=== PATIENT | female | born 1985 | race Caucasian/White ===

== ENCOUNTER 2020-08-02 14:25 | Outpatient (RCR) | payer OTHER, SELFPAY | END 2020-08-18 07:45 | disposition home or self-care (01) | LOC: ANHOBOP 14:25 | PROVIDERS: PCP Family Medicine; Visit Provider Obstetrics & Gynecology | DX: Z36.89 Encounter for other specified antenatal screening (principal); O36.0130 Maternal care for anti-D [Rh] antibodies, third trimester, not applicable or unspecified; O20.0 Threatened abortion; Z3A.00 Weeks of gestation of pregnancy not specified | CPT/HCPCS: 36415; 84702; 86850; 86900; 86901 ==

== ENCOUNTER 2020-08-02 20:55 | Observation (INO) | payer OTHER, SELFPAY ==
--- NOTE | ~2020-08-02 | US_ITS ---
EXAMINATION: US OB <=14 wk fetus w TV DATE: 08/02/2020 22:21 INDICATION: Vaginal bleeding. TECHNIQUE: Real-time transabdominal and transvaginal obstetric ultrasound. FINDINGS: No prior studies for comparison. The uterus measures 8.7 x 4.5 x 5.8 cm. Endometrium measures 13.6 mm. There is a single living ectopi c in the right adnexa with heart rate of 171 BPM. [place]-rump length corresponds to 8 week 1 day gestation. Small amount of free fluid in the pelvis. The ovaries within normal limits. IMPRESSION: 1. Living ectopic in the right adnexa with an EGA of 8 weeks, 1 days. heart rate 171 BPM. [facility] radiologist verbally discussed this case with clinician as per documentation in their report, which was faxed and scanned into PACS with this exam. Reviewed, dictated and finalized at location [facility]. PULLER IMPRESSION: 1. Living ectopic in the right adnexa with an EGA of 8 weeks, 1 days. heart rate 171 BPM. [facility] radiologist verbally discussed this case with clinician as per document ation in their report, which was faxed and scanned into PACS with this exam.
[2020-08-02 20:57] VITALS: BP 136/75; PULSE 101; RESP 20; TEMP 36.2; O2SAT 100
--- NOTE | 2020-08-02 21:29 | ED.FEMALEGU ---
HPI - Female Genitourinary General Chief complaint: Vaginal Bleeding Stated complaint: , spotting Time Seen by Provider: 08/02/20 21:05 History of Present Illness HPI Narrative: Patient is a 34-year-old female who presents ER with vaginal bleeding. Reports she had a drop of blood in her underwear when using the restroom this evening. LMP was 07/01. She had a positive test 2 days ago. She then had a positive beta hCG the same day and then had a repeat today. Is gone from 31,000-33,000. Patient's blood type is O+. She is a G1, P0. No lower abdominal pain. No urinary symptoms. Related Data Home Medications Medication Instructions Recorded Confirmed bupropion HCl (smoking deter) mg PO 08/02/20 cyanocobalamin (vitamin B-12) 08/02/20 metformin mg 08/02/20 Allergies Allergy/AdvReac Type Severity Reaction Status Date / Time No Known Allergies Allergy Verified 08/02/20 21:07 Review of Systems Review of Systems: All systems reviewed & are unremarkable except as noted in HPI and below Constitutional: Constitutional: Denies chills and Denies fatigue Gastrointestinal: Gastrointestinal: Denies abdominal pain, Denies nausea and Denies vomiting Genitourinary: Genitourinary: Reports abnormal vaginal bleeding, Denies dysuria, Denies urinary incontinence and Denies vaginal discharge PMFSH Past Medical History Medical History (Updated 08/02/20 @ 22:42 by Armando Vela MD) Healthy female adult Surgical History Surgical History (Updated 08/02/20 @ 21:35 by Armando Vela MD) No history of previous surgery Social History Social History (Updated 08/02/20 @ 21:36 by Armando Vela MD) Smoking status: Current every day smoker Exam Narrative: Exam Narrative: GENERAL: Well-appearing, well-nourished, and in no acute distress. HEAD: Normocephalic, atraumatic. CHEST: Clear to auscultation. No respiratory distress. HEART: Regular rate and rhythm. Normal peripheral pulses. ABDOMEN: Soft, nontender, nondistended. : Normal external genitalia. Cervix closed with dark blood present within the vaginal vault and at the cervical os. No discharge or tenderness. EXTREMITIES: Normal range of motion. No edema. NEURO: Alert and oriented x3. PSYCH: Normal mood and affect. Course Course Emergency Course: Patient with ectopic on the right ovary that is [address] Guillaume contacted. Admit to his service and he will perform the surgery in the morning. Patient is not having pain. She is aware of the diagnosis and treatment plan. She will be kept n.p.o. Dr. Guillaume contacted with formal read of ultrasound. Vital Signs Vital signs: Vital Signs Temperature 97.1 F L 08/02/20 20:57 Pulse Rate 101 H 08/02/20 20:57 Respiratory Rate 20 08/02/20 20:57 Blood Pressure 136/75 08/02/20 20:57 Pulse Oximetry 100 08/02/20 20:57 Temperature 98.8 F 08/02/20 23:08 Pulse Rate 99 08/02/20 23:08 Respiratory Rate 17 08/02/20 23:08 Blood Pressure 124/76 08/02/20 23:08 Pulse Oximetry 98 08/02/20 23:08 MDM - Female Genitourinary Lab Data Result diagrams: 08/02/20 23:03 08/02/20 23:03 Labs: Lab Results 08/02/20 08/02/20 08/02/20 Range/Units 23:03 23:03 23:03 WBC Pending RBC Pending Hgb Pending Hct Pending MCV Pending MCH Pending MCHC Pending RDW Pending Plt Count Pending MPV Pending Immature Gran % (Auto) Pending Neut % (Auto) Pending Lymph % (Auto) Pending [place] % (Auto) Pending Eos % (Auto) Pending Baso % (Auto) Pending Lymph # (Auto) Pending [place] # (Auto) Pending Eos # (Auto) Pending Baso # (Auto) Pending Abs Immat Gran (auto) Pending Absolute Neuts (auto) Pending Absolute Nucleated RBC Pending Nucleated RBC % Pending PT Pending INR Pending APTT Pending Sodium [place]
[2020-08-02 23:08] VITALS: BP 124/76; PULSE 99; RESP 17; TEMP 37.1; O2SAT 98
[2020-08-02 23:13] LABS: Basophils Percent Auto 0.3 % (0.2-1.2); Eosinophils Absolute Auto 0.1 K/mm3 (0-0.3); Eosinophils Percent Auto 0.7 % (0-4.4); Hematocrit 38.9 % (37.0-47.0); Hemoglobin 13.4 g/dL (12.0-15.0); Immature Granulocyte Absolute 0.08 K/mm3 (0.00-0.031); Immature Granulocyte Percent A 0.5 % (0-0.5); Lymphocytes Absolute Auto 3.18 K/mm3 (0.9-3.2); Lymphocytes Percent Auto 21.1 % (18.3-44.2); Mean Corpuscular HGB Conc 34.4 g/dl (32-36); Mean Corpuscular Hemoglobin 33.7 pg (26-34); Mean Corpuscular Volume 97.7 fl (80-100); Mean Platelet Volume 9.2 fl (7.4-10.4); Monocytes Absolute Auto 1.3 K/mm3 (0.1-0.6); Monocytes Percent Auto 8.3 % (2.6-8.5); Neutrophils Absolute Auto 10.4 K/mm3 (1.3-6.7); Neutrophils Percent Auto 69.1 % (45.5-73.1); Platelet Count Result 326 k/mm3 (150-375); Red Blood Count 3.98 M/mm3 (4.2-5.4); Red Cell Distribution Width 13.4 % (11.5-14.5)
[2020-08-02 23:29] LABS: Partial Thromboplastin Time 26.8 SECONDS (22.3-36.8)
[2020-08-02 23:31] LABS: Anion Gap 8 mmol/L (8-16); Blood Urea Nitrogen 10 mg/dL (7-17); Calcium 9.4 mg/dL (8.4-10.2); Carbon Dioxide 27 mmol/L (22-30); Chloride 104 mmol/L (98-107); Estimated CRCL calculation 154 ml/min; Estimated Glomerular Filt Rate > 60; Glucose 113 mg/dL (65-105); Potassium 3.9 mmol/L (3.4-5.0); Sodium 139 mmol/L (137-145)
[2020-08-02 23:45] LABS: INR 0.9; Prothrombin Time 12.4 Seconds (11.1-14.7)
[2020-08-03] VITALS (13 sets, daily range): BP systolic 101–131; BP diastolic 53–91; PULSE 80–97; RESP 12–21; TEMP 36.3–37.1; O2SAT 97–100; BMI 35.2
--- NOTE | 2020-08-03 00:43 | ADMGEN ---
This patient, Naomi Duarte, was admitted to Medical Room 241-01 at 0040 . Patient/family oriented to hospital policies and general routines including ID bracelet, bed and alarms, visiting hours, pain management, procedures, bathroom and other care routines, personal items, smoking policy, room service/diet, and visiting hours. Information on how to activate the Rapid Response Team has been discussed. Patient/Family are encouraged to report perceived risks to care and to ask questions if they do not understand what they are told or what they should do.
--- NOTE | 2020-08-03 07:38 | PM.IMHP ---
H&P: HPI History of Present Illness Date/Time: 08/03/20 07:38 Chief complaint: ectopic Narrative: Naomi Duarte is a 34 year old female primigravida at 39 weeks gestation who presents for delivery. She has a breech . This was confirmed by ultrasound moments ago. She denies any contractions, loss of fluid, vaginal bleeding. She reports good movement. She denies any nausea, vomiting, fever, chills. She denies any headaches, blurry vision, epigastric pain. She denies any chest pain or shortness of breath. Review of Systems Constitutional: Constitutional: Reports no additional constitutional complaints, Denies fatigue, Denies headache(s), Denies lethargy and Denies weakness Eyes: Eyes: Reports no additional eye complaints, Denies blurry vision and Denies photophobia ENT: Reports as per HPI, Denies headache(s) and Denies neck pain Cardiovascular: Cardiovascular: Denies chest pain, Denies diaphoresis, Denies leg edema, Denies palpitations and Denies dyspnea Respiratory: Respiratory: Denies hemoptysis, Denies dyspnea and Denies wheezing Gastrointestinal: Gastrointestinal: Denies abdominal pain, Denies melena, Denies bloating, Denies hematochezia, Denies nausea and Denies vomiting Genitourinary: Genitourinary: Reports no additional female genitourinary complaints Musculoskeletal: Musculoskeletal: Denies joint swelling, Denies neck pain, Denies numbness and Denies stiffness Neurologic: Denies Abnormal speech present, Denies confusion, Denies headache(s), Denies numbness and Denies weakness Psychiatric: Psychiatric: Denies anxiety, Denies confusion, Denies depression, Denies homicidal ideation and Denies suicidal ideation Endocrine: Endocrine: Denies fatigue and Denies palpitations Allergic/Immunologic: Allergic/Immunologic: Denies wheezing PMFSH Past Medical History Medical History (Updated 08/03/20 @ 07:42 by Shaun Guillaume MD) Healthy female adult Surgical History Surgical History (Updated 08/02/20 @ 21:35 by Armando Vela MD) No history of previous surgery Family History Family History (Updated 08/03/20 @ 01:17 by Cynthia Leon RN) Father Diabetes mellitus FH: heart attack Mother Acute rheumatoid arthritis Sibling Cerebrovascular accident Social History Social History (Updated 08/02/20 @ 21:36 by Armando Vela MD) Smoking packs per day: 1 Smoking cigarettes per day: 20.0 Smoking status: Former smoker Tobacco type: cigarettes Second hand tobacco smoke exposure: Yes Alcohol intake: former Substance use: never Gender identity (if verbalized by the patient): Female Spiritual care concerns: No Meds Home Medications and Allergies Home Medications Medication Instructions Recorded Confirmed Type bupropion HCl (smoking deter) 150 mg PO BID 08/02/20 08/03/20 History cyanocobalamin (vitamin B-12) 1,000 mcg SUBCUT MONTHLY 08/02/20 08/03/20 History metformin 500 mg PO BID 08/02/20 08/03/20 History Daily 1 tablet PO DAILY 08/03/20 08/03/20 History albuterol sulfate 2 puff INHALATION Q2-4H PRN 08/03/20 08/03/20 History ascorbate calcium (vitamin C) 1,000 mg PO DAILY 08/03/20 08/03/20 History cetirizine [Zyrtec] 10 mg PO DAILY 08/03/20 08/03/20 History cholecalciferol (vitamin D3) 5,000 unit PO DAILY 08/03/20 08/03/20 History [Vitamin D3] ibuprofen 800 mg PO Q4-6H PRN 08/03/20 08/03/20 History Allergies Allergy/AdvReac Type Severity Reaction Status Date / Time No Known Allergies Allergy Verified 08/03/20 00:45 Vital Signs Vital Signs - 24 hr 08/02/20 20:57 08/02/20 23:08 08/03/20 00:22 Temperature 97.1 F L 98.8 F 98.8 F Pulse Rate 101 H 99 92 Respiratory Rate 20 17 18 Blood Pressure 136/75 124/76 117/75 Pulse Oximetry 100 98 99 08/03/20 02:00 08/03/20 06:00 Temperature 98.1 F 98.6 F Pulse Rate 93 85 Respiratory Rate 21 H 21 H Blood Pressure 112/91 H 101/55 L Pulse Oximetry 100 100 Exam
--- NOTE | 2020-08-03 08:00 | PC.NURSE ---
To OR per bed, IV Saline locked. Report given to .
--- NOTE | 2020-08-03 08:32 | WPDANESEPPF ---
Anes - Initial Pre Proc Eval Procedure: Operation Date: 08/03/20 09:15 Proposed Procedures p Diagnostic Laparoscopy For Ectopic - Shaun Guillaume MD Date/Time: 08/03/20 08:32 Surgeon: Shaun Guillaume MD Pre Op Diagnosis: ectopic Patient Data Age: 34 Gender: F Height: 5 ft 5 in Weight: 96.2 kg Last Vital Signs Temp 37.0 C 08/03/20 06:00 Pulse 85 08/03/20 06:00 Resp 21 H 08/03/20 06:00 BP 101/55 L 08/03/20 06:00 Pulse Ox 100 08/03/20 06:00 Allergies Allergy/AdvReac Type Severity Reaction Status Date / Time No Known Allergies Allergy Verified 08/03/20 00:45 Home Medications Medication Instructions Recorded Confirmed Type bupropion HCl (smoking deter) 150 mg PO BID 08/02/20 08/03/20 History cyanocobalamin (vitamin B-12) 1,000 mcg SUBCUT MONTHLY 08/02/20 08/03/20 History metformin 500 mg PO BID 08/02/20 08/03/20 History Daily 1 tablet PO DAILY 08/03/20 08/03/20 History albuterol sulfate 2 puff INHALATION Q2-4H PRN 08/03/20 08/03/20 History ascorbate calcium (vitamin C) 1,000 mg PO DAILY 08/03/20 08/03/20 History cetirizine [Zyrtec] 10 mg PO DAILY 08/03/20 08/03/20 History cholecalciferol (vitamin D3) 5,000 unit PO DAILY 08/03/20 08/03/20 History [Vitamin D3] ibuprofen 800 mg PO Q4-6H PRN 08/03/20 08/03/20 History Laboratory Tests 08/02/20 08/02/20 08/02/20 23:03 23:03 23:03 WBC 15.0 K/mm3 H K/mm3 (4.5-10.0) RBC 3.98 M/mm3 L M/mm3 (4.2-5.4) Hgb 13.4 g/dL g/dL (12.0-15.0) Hct 38.9 % % (37.0-47.0) MCV 97.7 fl fl (80-100) MCH 33.7 pg pg (26-34) MCHC 34.4 g/dl g/dl (32-36) RDW 13.4 % % (11.5-14.5) Plt Count 326 k/mm3 k/mm3 (150-375) MPV 9.2 fl fl (7.4-10.4) Immature Gran % (Auto) 0.5 % % (0-0.5) Neut % (Auto) 69.1 % % (45.5-73.1) Lymph % (Auto) 21.1 % % (18.3-44.2) [place] % (Auto) 8.3 % % (2.6-8.5) Eos % (Auto) 0.7 % % (0-4.4) Baso % (Auto) 0.3 % % (0.2-1.2) Lymph # (Auto) 3.18 K/mm3 K/mm3 (0.9-3.2) [place] # (Auto) 1.3 K/mm3 H K/mm3 (0.1-0.6) Eos # (Auto) 0.1 K/mm3 K/mm3 (0-0.3) Baso # (Auto) 0.0 K/mm3 K/mm3 (0.0-0.1) Abs Immat Gran (auto) 0.08 K/mm3 H K/mm3 (0.00-0.031) Absolute Neuts (auto) 10.4 K/mm3 H K/mm3 (1.3-6.7) Absolute Nucleated RBC 0.0 K/mm3 K/mm3 (0.0-0.012) Nucleated RBC % 0.0 % % (0.0-0.2) PT 12.4 Seconds Seconds (11.1-14.7) INR 0.9 APTT 26.8 SECONDS SECONDS (22.3-36.8) Sodium Potassium Chloride Carbon Dioxide Anion Gap BUN Creatinine Estim Creat Clear Calc Estimated GFR Glucose Calcium Beta HCG, Quant 29635.00 mIU/ML mIU/ML Blood Type Antibody Screen 08/02/20 08/02/20 23:03 23:03 WBC RBC Hgb Hct MCV MCH MCHC RDW Plt Count MPV Immature Gran % (Auto) Neut % (Auto) Lymph % (Auto) [place] % (Auto) Eos % (Auto) Baso % (Auto) Lymph # (Auto) [place] # (Auto) Eos # (Auto) Baso # (Auto) Abs Immat Gran (auto) Absolute Neuts (auto) Absolute Nucleated RBC Nucleated RBC % PT INR APTT Sodium 139 mmol/L mmol/L (137-145) Potassium 3.9 mmol/L mmol/L (3.4-5.0) Chloride 104 mmol/L mmol/L (98-107) Carbon Dioxide 27 mmol/L mmol/L (22-30) Anion Gap 8 mmol/L mmol/L (8-16) BUN 10 mg/dL mg/dL (7-17) Creatinine 0.50 mg/dL L mg/dL (0.7-1.0) Estim Creat Clear Calc 154 m
--- NOTE | 2020-08-03 08:34 | PM.IMHP ---
H&P: HPI History of Present Illness Date/Time: 08/03/20 08:34 Chief complaint: ectopic Narrative: Naomi Duarte is a 34 year old female 1 a weeks gestation with an ectopic . We discussed the findings. It is not recommended the medical treatment be undertaken. She has an 8 week nonviable in the fallopian tube with a heartbeat. We have agreed to perform laparoscopic right salpingectomy or salpingostomy. It is likely that salpingostomy will not be a reasonable approach. The patient understands this. The patient understands that injuries may occur during the surgery that resultant severe illness, more surgery, and prolonged hospitalization patient is risk of hemorrhage and infection. Review of Systems Constitutional: Constitutional: Reports no additional constitutional complaints, Denies fatigue, Denies headache(s), Denies lethargy and Denies weakness Eyes: Eyes: Reports no additional eye complaints, Denies blurry vision and Denies photophobia ENT: Reports as per HPI, Denies headache(s) and Denies neck pain Cardiovascular: Cardiovascular: Denies chest pain, Denies diaphoresis, Denies leg edema, Denies palpitations and Denies dyspnea Respiratory: Respiratory: Denies hemoptysis, Denies dyspnea and Denies wheezing Gastrointestinal: Gastrointestinal: Denies abdominal pain, Denies melena, Denies bloating, Denies hematochezia, Denies nausea and Denies vomiting Genitourinary: Genitourinary: Reports no additional female genitourinary complaints Musculoskeletal: Musculoskeletal: Denies joint swelling, Denies neck pain, Denies numbness and Denies stiffness Neurologic: Denies Abnormal speech present, Denies confusion, Denies headache(s), Denies numbness and Denies weakness Psychiatric: Psychiatric: Denies anxiety, Denies confusion, Denies depression, Denies homicidal ideation and Denies suicidal ideation Endocrine: Endocrine: Denies fatigue and Denies palpitations Allergic/Immunologic: Allergic/Immunologic: Denies wheezing PMFSH Past Medical History Medical History Ectopic Obesity Ovarian cyst Smoker Surgical History Surgical History (Updated 08/03/20 @ 08:34 by Liam Pederson MD) H/O cervical spine surgery H/O laparoscopy Family History Family History (Updated 08/03/20 @ 01:17 by Cynthia Leon RN) Father Diabetes mellitus FH: heart attack Mother Acute rheumatoid arthritis Sibling Cerebrovascular accident Social History Social History (Updated 08/02/20 @ 21:36 by Armando Vela MD) Smoking packs per day: 1 Smoking cigarettes per day: 20.0 Smoking status: Former smoker Tobacco type: cigarettes Second hand tobacco smoke exposure: Yes Alcohol intake: former Substance use: never Gender identity (if verbalized by the patient): Female Spiritual care concerns: No Meds Home Medications and Allergies Home Medications Medication Instructions Recorded Confirmed Type bupropion HCl (smoking deter) 150 mg PO BID 08/02/20 08/03/20 History cyanocobalamin (vitamin B-12) 1,000 mcg SUBCUT MONTHLY 08/02/20 08/03/20 History metformin 500 mg PO BID 08/02/20 08/03/20 History Daily 1 tablet PO DAILY 08/03/20 08/03/20 History albuterol sulfate 2 puff INHALATION Q2-4H PRN 08/03/20 08/03/20 History ascorbate calcium (vitamin C) 1,000 mg PO DAILY 08/03/20 08/03/20 History cetirizine [Zyrtec] 10 mg PO DAILY 08/03/20 08/03/20 History cholecalciferol (vitamin D3) 5,000 unit PO DAILY 08/03/20 08/03/20 History [Vitamin D3] ibuprofen 800 mg PO Q4-6H PRN 08/03/20 08/03/20 History Allergies Allergy/AdvReac Type Severity Reaction Status Date / Time No Known Allergies Allergy Verified 08/03/20 00:45 Vital Signs Vital Signs - 24 hr 08/02/20 20:57 08/02/20 23:08 08/03/20 00:22 Temperature 97.1 F L 98.8 F 98.8 F Pulse Rate 101 H 99 92 Respiratory Rate 20 17 18 Blood Pressure 136/75 124/76 117/75 Pulse Oximetry 100 98 9
--- NOTE | 2020-08-03 08:45 | WPDHPUPDATE1 ---
History and Physical Update Update Date/Time: 08/03/20 08:45 History and Physical has been reviewed, including an updated exam of the patient. There are NO changes in the patient's condition. Risks, benefits, and alternatives have been discussed and questions answered. Patient agrees to proceed with procedure.
[2020-08-03] MEDS: LACTATED RINGERS 1,000 ML 30 ML IV CONT ×2 (08:49→10:19)
--- NOTE | 2020-08-03 10:16 | P.OP_ITS ---
Procedure Note - Detailed Date of procedure: 08/03/20 Pre-op diagnosis: ectopic Procedure performed: Laparoscopic Right salpingectomy Description of procedure: The patient was taken the operating room. She was prepped and draped in the dorsal lithotomy position after induction of general anesthesia. A 5 mm left upper quadrant incision was made in the abdominal skin with a scalpel. A 5 mm trocar was inserted the intra-abdominal cavity under direct visualization of the scope. A 11 mm left lower quadrant incision was made with the scalp on the abdominal skin and a 11 mm trocar was inserted the intra-abdominal cavity under direct visualization of the scope. A 5 mm infraumbilical incision was made with scalpel and a 5 mm trocar was inserted into the intra-abdominal cavity under direct visualization of the scope. A right salpingectomy was performed. The paratubal tissue between the ovary and the tube was cauterized and transected with scissors. Proceeding medially towards the uterus the paratubal tissue was cauterized and transected and r epetitive steps. The tube was then transected at the cornual region of the tube. It was cauterized prior to transecting. The tube with ectopic was placed in an endobag and taken out through the left lower quadrant trocar site. The pelvis was irrigated with copious amounts of normal saline. The pneumoperitoneum was reduced. The trocars were removed. The patient was taken recovery room stable condition. Sponge lap and needle counts were correct x2. Anesthesia: GETA Surgeon: Shaun Guillaume MD Estimated blood loss (mL): 20 Drains: No Packing: No Complications: No immediate complications Condition: stable Disposition: PACU Findings: Very large ectopic within the right tube that distended the full length of the tube. It was approximately 8 cm x 5 cm. Normal-appearing left ovary. Absent left fallopian tube. Normal-appearing uterus.
[2020-08-03] MEDS: fentaNYL CITRATE INJ (*CRX) 100 MCG/2 ML VIAL 25 MCG IV PUSH ×10 (10:39→11:02)
--- NOTE | 2020-08-03 12:28 | PC.NURSE ---
1135- Patient returned from OR.
[2020-08-03] MEDS: oxyCODONE HCL (*CRX) 5 MG TAB IR PO (15:06)
== END 2020-08-03 15:35 | disposition home or self-care (01) ==
LOC: ANHED 22:44 → ANH2MED 23:40
PROVIDERS: Emergency Medicine; Admitting Provider Obstetrics & Gynecology; Emergency Provider Emergency Medicine; PCP Family Medicine; Visit Provider Obstetrics & Gynecology
PROC: (CPT 49320; principal; 2020-08-03 09:15)
DX: O00.101 Right tubal pregnancy without intrauterine pregnancy (principal); Z87.891 Personal history of nicotine dependence
CPT/HCPCS: 59151; 36415; 76801; 76817; 80048; 84702; 85025; 85610; 85730; 86850; 86900; 86901; 88305; 96374; 99285; A9270; G0378; G0379; J0131; J1100; J2250; J2405; J2704; J2710; J3010; J7030; J7120

== ENCOUNTER 2021-03-22 10:23 | Outpatient (CLI) | payer OTHER, SELFPAY ==
--- NOTE | ~2021-03-22 | CT_ITS ---
EXAMINATION: CT sinus wo con DATE: 03/22/2021 10:42 INDICATION: Frontal headache, worsening. Recurrent left urinary. Dizziness. Sinusitis. TECHNIQUE: Computed tomography (CT) of the paranasal sinuses was performed without contrast. Iterativ e reconstruction technique was employed. Exam dose: 310.25 mGy-cm total exam DLP. COMPARISON: None FINDINGS: There is rightward deviation of the nasal septum. There is asymmetric soft tissue swelling of the left middle and inferior nasal turbinates. The ostiomeatal units are patent bilaterally. 1.6 cm polyp or mucous retention cyst in the posterior lower left maxillary sinus. Mild focal lateral right maxillary sinus soft tissue thickening. Mild posterior right ethmoid air cell septal soft tiss ue thickening. 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 The frontal and sphenoid sinuses are normally developed and aerated bilaterally. The mastoid air cells are unremarkable. Middle and inner ear apparatus appear normal. 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 Reviewed, dictated and finalized at location B.
== END 2021-03-22 10:24 | disposition home or self-care (01) ==
PROVIDERS: PCP Family Medicine; Visit Provider Nurse Practitioner
DX: J34.89 Other specified disorders of nose and nasal sinuses (principal); J34.2 Deviated nasal septum
CPT/HCPCS: 70486

== ENCOUNTER 2021-08-18 12:30 | Outpatient (RCR) | payer OTHER, SELFPAY ==
--- NOTE | 2021-06-04 13:50 | PTOPEVAL ---
PHYSICAL THERAPY EVALUATION AND PLAN OF CARE 06-04-21 Thank you for referring Naoim Duarte to [facility].? She is scheduled to be seen for therapy? 2 x/week for 4 weeks. Please review, sign, date and return this plan of care [place]. I agree with and certify that the following plan of care is medically necessary. Referring Physician Date Referring Provider: Sabina Workman APRN *PT Outpatient Evaluation Start: 06/04/21 10:07 Document 06/04/21 10:00 CHEMA (Rec: 06/04/21 11:08 CHEMA [id number]) Past Medical History Source of Past Medical History Recalled from Previous Visit, Confirmed with Patient/Family Neurological History Hx Migraine Yes: headaches due to neck pain Cardiovascular History Hx Cardiac Disorders No Significant History Respiratory History Hx Bronchitis Yes Hx Other Respiratory Disorders Yes: allergy, sinus issues; Gastrointestinal History Hx Cholecystectomy Yes Genitourinary History Hx Genitourinary Disorders No Significant History Musculoskeletal History Hx Other Musculoskeletal Disorders Yes: 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 fused 2017; neck pain and headaches Hematological History Hx Hematological Disorders No Significant History Endocrine History Hx Endocrine Disorders No Significant History HEENT History Hx Sinus Problems Yes: allergies and sinus infections Integumentary History Hx Skin Disorders No Significant History Reproductive History Hx Pelvic Inflammatory Disease Yes Hx Other Reproductive Disorders Yes: L fallopian tube removed due to cyst Psychosocial History Hx Anxiety Yes: due to dizziness, have more anxiety, taking some meds for Hx Depression Yes Pain History Has Past Pain Affected Your Daily Life Yes Effective Methods of Pain Control ibprofen Anesthesia History Hx Anesthesia Reactions No Significant History Other History Hx Other Medical Conditions Yes: had COVID Apr 2020- mild case like head cold;have not had vaccine Evaluation Information Problem Diagnosis vestibular rehab, vestibular migraine Onset February 26, 2021 Subjective Information chronic issues, went to on Query Text:As Reported By Patient/ February 26 to address it Family Prior Level of Function Activity Level (Last 3 Months) 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
--- NOTE | 2021-06-30 11:20 | PTOPEVAL ---
PHYSICAL THERAPY RE-EVALUATION AND UPDATED PLAN OF CARE 06-30-21 Refer to the clinical summary below, for her status today, compared to the initial evaluation. She has improved and the goals were partially achieved. Continue PT 2x/week for 4 weeks, to further treat her cervical pain and dizziness issues. Thank you for referring Naomi Duarte to [facility].? Please review, sign, date and return this plan of care [facility]. I agree with and certify that the following plan of care is medically necessary. Referring Physician Date Referring Provider: Sabina Workman APRN Document 06/30/21 10:25 CHEMA (Rec: 06/30/21 11:20 CHEMA [id number]) Assessment Status Re-evaluation Subjective Information Naomi reports: feel like Query Text:As Reported By Patient/ not as dizzy, but still have Family dizziness when move head fast- R/L; therapy is helping, need more therapy; improved with moving around more, know what to do to help myself; headaches are not as bad, 1-2x/wk,take ibuprofen; doing stretches and exercises at home; watching posture and position of neck; Pain Assessment Timing of Pain Assessment Timing of Pain Assessment Assessment Pain Scale Pain Scale Used Numeric (1 - 10) Self Report Pain Assessment Bilateral Spine, Cervical Reported Pain Level 3 Pain Frequency Chronic Other Pain Description stiff in neck L>R; Lowest Pain Intensity 2 Greatest Pain Intensity 7 Pain Aggravating Factors Sitting Other Pain Aggravating Factors sit long time- 1 hour, with bad position;when first wake up in AM; Additional Pain Comments start to sleep, on back, then roll onto R side, have good MyPillow; headaches 1-2x/wk, ease with ibuprofen Pain Score Pain Score 3: Self Report Additional Pain Score Comments allergies giving her horrible troubles; taking meds, drainage in throat and meds dry her nose up; when doing home tasks--moving fast, have dizziness; looking down bothers her; with working as [employer]; activity about 30 minutes, then dizzy; but if move slower is better; is taking a shower alone, and feels safe with it; with
--- NOTE | 2021-07-28 14:29 | PCPTNOTE ---
pt called and canceled today's reevaluation. She rescheduled for Aug 18, due to going out of town for 2 weeks.
--- NOTE | 2021-08-18 13:32 | PTOPEVAL ---
PHYSICAL THERAPY REEVALUATION AND UPDATED PLAN OF CARE 08-18-21 Refer to the clinical summary below for her status today, compared to the last reevaluation. Her vestibular issues have improved, and appear to be related to her sinus'. Therapy treatment will continue for her neck pain and headaches, 2x/week for 4 weeks. Thank you for referring Naomi Duarte to [facility].? Please review, sign, date and return this updated plan of care [facility]. I agree with and certify that the following plan of care is medically necessary. Referring Physician Date Referring Provider: Sabina Workman APRN *PT Outpatient Re-Evaluation Subjective Information Naomi reports: was on Query Text:As Reported By Patient/ vacation in [place], visiting Family family and sinus' did not bother her at all- were clear and when returned home to [place], all full in sinus' again; after trip feel more out of it , like head full and head is foggy; have stopped smoking for the past 3 weeks and doing OK without them; R shoulder is tighter and hurting- ? how slept when on vacation; have been doing neck and shoulder stretches at home and watching posture; sometimes light bothers her; usually feel better at the end of the day, when dark; the dry needling really helped her pain and wants to continue therapy and have more dry needling for her R side that is painful. Pain Assessment Timing of Pain Assessment Timing of Pain Assessment Assessment Pain Scale Pain Scale Used Numeric (1 - 10) Self Report Pain Assessment Bilateral Spine, Cervical Reported Pain Level 3 Pain Description Soreness,Tightness,Tingling Radicular Pain Location R & L arm tingle when lie on back, to hands when move it eases Pain Frequency Chronic,Continuous Other Pain Description headaches 0-1x/wk, tend to have at base of head, last few hours Lowest Pain Intensity 1 Greatest Pain Intensity 8 Pain Aggravating Factors Exercise/Activity Pain Behaviors Grimacing,Guarding Pain Score Pain Score 3: Self Report Additional Pain Score Comments reports have not really had
--- NOTE | 2021-08-30 07:40 | PCPTNOTE ---
Pt called and cancelled treatment for 08/30 stating that she did not feel well.
--- NOTE | 2021-08-30 09:46 | PCPTNOTE ---
This treatment is being continued on visit number [id number]. Please see documentation on both accounts to view progress. Completed interventions, outcomes, and problems have been marked as Inactive to facilitate the copying of the Care plan routine for recurring accounts.
== END 2021-08-30 09:29 | disposition home or self-care (01) ==
LOC: ANHPT 12:30
PROVIDERS: PCP Family Medicine
DX: G43.809 Other migraine, not intractable, without status migrainosus (principal)
CPT/HCPCS: 20560; 97014; 97110; 97140; 97162; G0283

== ENCOUNTER 2021-09-22 11:00 | Outpatient (RCR) | payer OTHER, SELFPAY ==
--- NOTE | 2021-09-13 11:19 | PCPTNOTE ---
Patient did not show up for scheduled appointment this date. Called & had to leave a message.
--- NOTE | 2021-09-20 11:25 | PCPTNOTE ---
Patient did not show up for scheduled appointment this date. Called & had to leave a message.
--- NOTE | 2021-09-22 11:17 | PCPTNOTE ---
pt did not show for today's reeval; called pt and left voice mail about missed appt;
--- NOTE | 2021-10-07 13:27 | PCPTNOTE ---
called pt, she stated she is stating a new job next week; wants to continue therapy, but cannot make an appt yet, until she knows what her work schedule will be. She will call for reeval time to restart PT.
--- NOTE | 2021-11-02 09:33 | PCPTNOTE ---
PHYSICAL THERAPY DISCHARGE 11-02-21 Attending Provider: Sabina Workman APRN Patient:Naomi Duarte Date of :1985 Ms. Duarte has not returned for any further treatments since 09/22/2021, therefore she will be discharged at this time. Thank you for referring this patient to [facility]. Please review, sign, date and return this discharge summary [facility]. I have been updated about the patient's current status and I agree with discharge from the above service at this time. Referring Physician Date
== END 2021-11-22 11:30 | disposition home or self-care (01) ==
LOC: ANHPT 11:00
PROVIDERS: PCP Family Medicine
DX: G43.809 Other migraine, not intractable, without status migrainosus (principal)
CPT/HCPCS: 20560; 97110; 97140

== ENCOUNTER 2022-08-09 08:49 | Emergency (ER) | payer OTHER, SELFPAY ==
--- NOTE | ~2022-08-09 | CT_ITS ---
EXAMINATION: CT abdomen pelvis wo con DATE: 08/09/2022 13:35 INDICATION: Right flank pain. Nausea. TECHNIQUE: Computed tomography (CT) of the abdomen and pelvis was performed without intravenous contr ast. Automated exposure control and iterative reconstruction technique were employed. Exam dose: 148 5.36 mGy-cm total exam DLP. COMPARISON: None. FINDINGS: The lung bases are clear. Normal heart size. No pericardial or pleural effusion. Status post cholecystectomy. No bile duct or pancreatic duct dilatation. Diffuse hepatic steatosis. No hepatic, splenic, pancreatic, adrenal or renal space-occupying mass les ion is detected on this limited noncontrast examination. No urinary tract calculus or hydroureteronephrosis. Normal caliber of the abdominal aorta. No intraperitoneal or retroperitoneal or pelvic mass lesion or adenopathy or ascites. The uterus and right ovary appear unremarkable. Approximately 2.7 cm left ovarian cystic lesion. The urinary bladder is unremarkable. No bowel obstruction, bowel wall thickening, pneumatosis or intraperitoneal free air. Small fat-containing umbilical hernia. Mild anterior wedge likely chronic compression fracture of T10. Bilateral L5 pars interarticularis defects IMPRESSION: Hepatic steatosis Status post cholecystectomy Approximately 2.7 cm left ovarian cystic lesion. This would likely be better evaluated by pelvic ultr asound examination. Reviewed, dictated and finalized at [facility]. Reviewed, dictated and finalized at location [facility]. [employer] IMPRESSION: Hepatic steatosis Status post cholecystectomy Approximately 2.7 cm left ovarian cystic lesion. This would likely be better ev aluated by pelvic ultrasound examination.
--- NOTE | ~2022-08-09 | XR_ITS ---
XR chest 1V portable DATE: 08/09/2022 13:17 INDICATION: Right-sided pain for one month. Nausea. TECHNIQUE: Portable AP chest on 08/09/2022 at 1313 hours COMPARISON: 08/29/2018 PA chest FINDINGS: Normal heart size. No hilar or mediastinal enlargement. No pulmonary infiltrate or consolid ation, pleural effusion or pulmonary vascular congestion or pneumothorax. IMPRESSION: No active cardiopulmonary disease Reviewed, dictated and finalized at location [facility]. [employer]
[2022-08-09 08:51] VITALS: BP 120/78; PULSE 89; RESP 16; TEMP 36.7; O2SAT 99
[2022-08-09 09:40] LABS: Appearance Urine Clear (Clear); Bilirubin Urine Negative (Negative); Blood Urine Negative (Negative); Color Urine Yellow (Yellow); Glucose Urine UA Negative (Negative); Ketones Urine Negative (Negative); Leukocyte Esterase Ur Negative LEU/UL (Negative); Nitrate Urine Negative (Negative); Protein Urine Negative (Negative); Urobilinogen Urine 0.2 mg/dL (<2.0)
[2022-08-09 09:44] LABS: Add Urine Microscopic? NO
[2022-08-09 12:39] VITALS: BP 132/84; PULSE 80; TEMP 36.4; O2SAT 100
--- NOTE | 2022-08-09 13:03 | ED.GENADULT ---
HPI - General Adult General Chief complaint: Abdominal Pain Stated complaint: r rib pain Time Seen by Provider: 08/09/22 12:47 History of Present Illness HPI narrative: This is a 36-year-old female presenting to the ED with right flank pain. Patient says her pain has been going on and off for 2 years. It is usually precedes her menses. She describes as a dull cramping pain on her right flank that radiates to her right groin. This morning it was 10/10 in intensity and made her nauseous although she did not vomit. Pain typically comes and goes. Usually it is relieved by heating pad. There are no exacerbating factors. Patient has noticed that she has had increased urinary frequency but no dysuria or urgency. She denies fever, chills, history of kidney stones. She has diarrhea but that is her baseline. Related Data Home Medications Medication Instructions Recorded Confirmed bupropion HCl (smoking deter) 150 150 mg PO BID 08/02/20 08/03/20 mg tablet,12 hr sustained-release(smoking deterrent) cyanocobalamin (vitamin B-12) 1,000 mcg subcut MONTHLY 08/02/20 08/03/20 1,000 mcg/mL injection solution metformin 500 mg tablet 500 mg PO BID 08/02/20 08/03/20 Daily 1 tablet PO DAILY 08/03/20 08/03/20 albuterol sulfate 90 mcg/actuation 2 puff inhalation Q2-4H PRN 08/03/20 08/03/20 aerosol inhaler Shortness Of Breath ascorbate calcium (vitamin C) 1,000 mg PO DAILY 08/03/20 08/03/20 cetirizine 10 mg tablet (Zyrtec) 10 mg PO DAILY 08/03/20 08/03/20 cholecalciferol (vitamin D3) 125 5,000 unit PO DAILY 08/03/20 08/03/20 mcg (5,000 unit) tablet (Vitamin D3) ibuprofen 800 mg tablet 800 mg PO Q4-6H PRN Pain 08/03/20 08/03/20 Allergies Allergy/AdvReac Type Severity Reaction Status Date / Time No Known Allergies Allergy Verified 08/03/20 08:56 Review of Systems Review of Systems: CONSTITUTIONAL: Denies night sweats. EYES: No eye pain ENT: Denies rhinorrhea CARDIOVASCULAR: Denies palpitations RESPIRATORY: Denies hemoptysis GASTROINTESTINAL: Denies hematemesis GENITOURINARY: Denies hematuria. SKIN: Denies rash MUSCULOSKELETAL: Denies myalgia. NEUROLOGIC: Denies weakness. PSYCHIATRIC: Denies delusions [facility] Past Medical History Medical History Ectopic Obesity Ovarian cyst Smoker Surgical History Surgical History H/O cervical spine surgery H/O laparoscopy Family History Family History Father Diabetes mellitus FH: heart attack Mother Acute rheumatoid arthritis Sibling Cerebrovascular accident Social History Social History Smoking packs per day: 1 Smoking cigarettes per day: 20.0 Smoking status: Former smoker Tobacco type: cigarettes Second hand tobacco smoke exposure: Yes Alcohol intake: former Substance use: never Gender identity (if verbalized by the patient): Female Spiritual care concerns: No Exam Narrative: APPEARANCE: No apparent distress. Head: atraumatic. EYES: EOMI, NOSE: Atraumatic NECK: Trachea midline RESPIRATORY: No increased rate of breathing CARDIOVASCULAR: RRR, ABDOMINAL: Patient has tenderness to palpation in the right upper quadrant/flank. well healed surgical scars from cholecystectomy are in place. There is no guarding or rebound. No tenderness in the rest the abdomen. Bowel sounds present. No CVA tenderness MUSCULOSKELETAl: No obvious deformities NEURO: Alert. Moving 4/4 extremities SKIN:: Warm, dry. Normal color PSYCHIATRIC: Normal affect Course Vital Signs Vital signs: Vital Signs Temperature 98.1 F 08/09/22 08:51 Pulse Rate 89 08/09/22 08:51 Respiratory Rate 16 08/09/22 08:51 Blood Pressure 120/78 08/09/22 08:51 Pulse Oximetry 99 08/09/22 08:51 Oxygen Delivery Room Air 08/09/22 08:51 Temperature 97.6 F 08/09/22 12:39
[2022-08-09] MEDS: IBUPROFEN 400 MG TABLET 800 MG PO (13:19)
[2022-08-09] MEDS: ACETAMINOPHEN 500 MG TABLET 1000 MG PO (13:19)
[2022-08-09 13:32] LABS: Basophils Percent Auto 0.2 % (0.2-1.2); Eosinophils Absolute Auto 0.2 K/mm3 (0-0.3); Eosinophils Percent Auto 1.3 % (0-4.4); Hematocrit 41.8 % (37.0-47.0); Hemoglobin 14.2 g/dL (12.0-15.0); Immature Granulocyte Absolute 0.06 K/mm3 (0.00-0.031); Immature Granulocyte Percent A 0.5 % (0-0.5); Lymphocytes Absolute Auto 2.41 K/mm3 (0.9-3.2); Lymphocytes Percent Auto 18.2 % (18.3-44.2); Mean Corpuscular Hemoglobin 32.3 pg (26-34); Mean Platelet Volume 9.5 fl (7.4-10.4); Monocytes Absolute Auto 0.9 K/mm3 (0.1-0.6); Monocytes Percent Auto 6.4 % (2.6-8.5); Neutrophils Absolute Auto 9.7 K/mm3 (1.3-6.7); Neutrophils Percent Auto 73.4 % (45.5-73.1); Platelet Count Result 320 k/mm3 (150-375); Red Cell Distribution Width 12.9 % (11.5-14.5); White Blood Count 13.2 K/mm3 (4.5-10.0)
[2022-08-09 13:45] LABS: Alanine Aminotransferase 39 U/L (6-35); Albumin Level 4.8 g/dL (3.5-5.1); Alkaline Phosphatase 115 U/L (38-126); Anion Gap 12 mmol/L (8-16); Aspartate Amino Transferase 34 U/L (14-36); Bilirubin,Total 0.6 mg/dL (0.2-1.3); Blood Urea Nitrogen 8 mg/dL (7-17); Carbon Dioxide 22 mmol/L (22-30); Chloride 105 mmol/L (98-107); Estimated CRCL calculation 161 ml/min; Estimated Glomerular Filt Rate > 60; Glucose 96 mg/dL (65-110); Lipase 164 U/L (23-300); Magnesium 1.7 mg/dL (1.6-2.3); Potassium 3.8 mmol/L (3.4-5.0); Sodium 139 mmol/L (137-145)
[2022-08-09 14:42] VITALS: BP 125/72; PULSE 79; RESP 16; O2SAT 100
== END 2022-08-09 14:43 | disposition home or self-care (01) ==
PROVIDERS: Emergency Medicine; Emergency Provider Emergency Medicine; PCP Family Medicine
DX: R10.9 Unspecified abdominal pain (principal); G89.29 Other chronic pain; N83.202 Unspecified ovarian cyst, left side; E66.9 Obesity, unspecified; Z68.39 Body mass index [BMI] 39.0-39.9, adult; Z87.891 Personal history of nicotine dependence; Z79.84 Long term (current) use of oral hypoglycemic drugs
CPT/HCPCS: 36415; 71045; 74176; 80053; 81003; 83690; 83735; 85025; 99284; A9270

== ENCOUNTER 2022-08-26 10:38 | Outpatient (CLI) | payer OTHER, SELFPAY ==
--- NOTE | 2022-08-31 18:30 | WPDHOLTEREM ---
Holter/Event Monitor Holter/Event Monitor Date of procedure: 08/31/22 Holter/Event Procedure: 24 Hr Holter Monitor Diagnosis: Palpitations Indications: Palpitations Image/Tracing Quality: Adequate. Analysis time was 23 hours and 59 minutes. Findin. Predominantly sinus rhythm. The average heart rate was 82bpm. The minimum heart rate was 57bpm and the maximum heart rate was 132bpm. 2. There was no atrial fibrillation. 3. There was no ventricular ectopy or ventricular tachycardia 4. Supraventricular ectopy consisted of 8 betas, 2 were in atrial couplets, 6 were single PACs. Conclusion: 1. Predominantly sinus rhythm. The average heart rate was 82bpm. The minimum heart rate was 57bpm and the maximum heart rate was 132bpm. 2. No significant arrhythmias.
== END 2022-08-26 10:39 | disposition home or self-care (01) ==
LOC: ANHCARD 10:38
PROVIDERS: PCP Family Medicine; Visit Provider Family Medicine
DX: R00.2 Palpitations (principal)
CPT/HCPCS: 93225; 93226

== ENCOUNTER 2022-10-19 08:06 | Outpatient (CLI) | payer OTHER, SELFPAY ==
--- NOTE | 2022-11-08 19:30 | WPDSLEEPSTUD ---
Sleep Study Date of Study: 10/19/22 Ordering Provider: Treasure Latham, BEATER TENDER Interpreting Physician: Jordyn Abarca, Sleep Study Type: Polysomnogram Height: 1.65 m Weight: 111.13 kg Body Mass Index: 40.7 Neck Circumference (inches): 17 [place]: 5 Reason for Sleep Study Snoring, witnessed apneas, daytime hypersomnia Sleep History The patient is a 36-year-old female with anxiety, depression, PCOS and history of tobacco use that had a sleep study ordered for evaluation of sleep apnea. 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 The patient frequently awakens at night with heartburn, belching or cough. She occasionally snores and is frequently loudly enough that others complain. She frequently has trouble sleeping when she has a cold. She denies waking up gasping for air throughout the night. She frequently has breathing problems at night observed by herself or others. She occasionally sweats excessively at night. She rarely has heart palpitations or irregular heartbeats during the night. She denies falling asleep during the day and while driving. She denies sleep paralysis and cataplexy. She frequently has trouble at school or work due to sleepiness. She occasionally experiences vivid dreamlike scenes upon awakening or falling asleep. She occasionally feels afraid of going to sleep. She rarely has nightmares. She frequently remembers her dreams. She frequently has thoughts racing through her mind. She occasionally feels sad, depressed and anxious. She occasionally has muscular tension. She occasionally notices parts of her body jerk. She denies kicking during night. She frequently experiences crawling and aching feelings in her legs and occasionally has leg pain during the night. She frequently grinds her teeth during sleep and frequently awakens with morning jaw pain. She is frequently bothered by pain during the day and frequently awakened by pain during. She occasionally wakes up feeling stiff. She occasionally wakes up with sore or achy muscles. She frequently wakes up with pain, spine or other joints. She goes to bed at 11:00 p.m. weekdays and between 11:00 p.m. to midnight on the weekends. It takes her 1 hour to fall asleep. She wakes up 2-3 times throughout the night to urinate. She is able to fall back asleep within 5-30 minutes. She wakes up between 2:23 a.m. on both weekdays and weekends. She typically gets 8 hours of sleep per night. She will stay in bed for 5-15 minutes after waking up in. She currently lives alone. He does not consume any caffeinated beverages within 2 of bedtime. She denies engaging in physical exercise before bedtime. She denies reading watching television before falling asleep. She denies taking naps afternoon or the evening. She drinks 1 L of Diet Pepsi per day. She quit smoking cigarettes 14 months ago. She denies alcohol recreational drug use. [facility] Past Medical History Medical History Ectopic Obesity Ovarian cyst Smoker Surgical History Surgical History H/O cervical spine surgery H/O laparoscopy Family History Family History Father Diabetes mellitus FH: heart attack Mother Acute rheumatoid arthritis Sibling Cerebrovascular accident Social History Social History Smoking packs per day: 1 Smoking cigarettes per day: 20.0 Smoking status: Former smoker Tobacco type: cigarettes Second hand tobacco smoke exposure: Yes Alcohol intake: former Substance use: never Lack of Transportation: No Lack of Food: Never True Current Housing: I Have Housing Concerned About Future Housing: No Difficulty Paying Gas/Electric Bills: No Difficulty Paying for Meds: No Currently Unemployed: No Education: High School Diplom
[2022-11-08 19:44] VITALS: BMI 40.7
== END 2022-10-20 06:59 | disposition home or self-care (01) ==
LOC: ANHCSM 08:07
PROVIDERS: PCP Family Medicine; Visit Provider Nurse Practitioner
DX: G47.10 Hypersomnia, unspecified (principal); G47.33 Obstructive sleep apnea (adult) (pediatric)
CPT/HCPCS: 95810

== ENCOUNTER 2025-04-21 08:36 | Emergency (ER) | payer OTHER, SELFPAY ==
--- OUTSIDE RECORDS SUMMARY | 2025-04-21 08:38 | XMS_ITS | Clinical Summary ---
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 Gender Identity Not on file Sexual Orientation Not on file Plan of Treatment Health Maintenance Due Date Last Done Comments Cervical Cancer Screening Pa p Smear (Age 30 to 64) Every 3 Years 1986 Annual Physical 1989 Hepatitis C 2004 DTaP, Tdap and Td Vaccines ( 1 - Tdap) 2005 Hepatitis B Vaccines (1 of 3 - 19+ 3-dose series) 2005 HPV Vaccines (1 - 3-dose SCD M series) 2013 Cervical Cancer Screening Pa p with HPV Testing (Age 30 to 64) Every 5 Years 2016 Cervical Cancer Screening with HPV 2016 COVID-19 Vaccine (2023-2 5 season) 2024 Meningococcal B Vaccine Aged Out No l onger eligible based on patient's age to complete this topic Meningococcal Vaccine Aged Out No sravanthi billie eligible based on patient's age to complete this topic Pneumococcal Vaccine: Pediat rics (0 to 5 Years) and At-Risk Patients (6 to 49 Years) Aged Out No longer eligible b ased on patient's age to complete this topic RSV Immunizations Under 20 Months Aged Out No longer eligible based on patient's age to complete this topic Insurance [employer] Care Teams Assembler Show Motor Relationship Specialty Start Date End Date Royal Guzman MD [address] [place] [address] PCP - General FAMILY PRACTICE 09/08/20
--- OUTSIDE RECORDS SUMMARY | 2025-04-21 08:38 | XMS_ITS | Encounter Summary ---
Author Organization 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
--- NOTE | 2025-04-21 08:41 | ED.URI ---
HPI - URI/Sore Throat General Chief Complaint: Upper Respiratory Infection Stated Complaint: Sore Throat/Chest Burning/Headache Time Seen by Provider: 04/21/25 08:50 Source: patient and RN notes reviewed Mode of arrival: ambulatory Limitations: no limitations History of Present Illness HPI Narrative: 39-year-old female presents with concern for positive self administered COVID test. She reports she started feeling bad last night with her nose burning. She reports this morning she had a headache and a sore throat and overall did not feel very well. 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 She denies fever, body aches, chills, sweats. MD elicited complaint: nasal congestion Related Data Home Medications ?Medication ?Instructions ?Recorded ?Confirmed ?Last Taken ?Type cyanocobalamin (vitamin B-12) 1,000 mcg subcut MONTHLY 08/02/20 10/13/22 Unknown History 1,000 mcg/mL injection solution albuterol sulfate 90 mcg/actuation 2 puff inhalation Q2-4H PRN 08/03/20 10/13/22 Unknown History aerosol inhaler Shortness Of Breath ascorbate calcium (vitamin C) 1,000 mg PO DAILY 08/03/20 10/13/22 Unknown History cholecalciferol (vitamin D3) 125 5,000 unit PO DAILY 08/03/20 10/13/22 Unknown History mcg (5,000 unit) tablet (Vitamin D3) citalopram 20 mg tablet 20 mg PO 10/13/22 10/13/22 Unknown History dulaglutide 1.5 mg/0.5 mL 1.5 mg subcut 10/13/22 10/13/22 Unknown History subcutaneous pen injector (Trulicity) spironolactone 25 mg tablet 25 mg PO 10/13/22 10/13/22 Unknown History Allergies Allergy/AdvReac Type Severity Reaction Status Date / Time No Known Allergies Allergy Verified 10/13/22 09:36 Review of Systems Review of Systems: CONSTITUTIONAL: Reports malaise. Denies chills, sweats, or fever. EYES: Denies visual changes, redness, or discharge. ENT: Reports rhinorrhea, congestion, and sore throat. CARDIOVASCULAR: Denies chest pain, palpitations, or edema. RESPIRATORY: Denies cough. Denies dyspnea. GASTROINTESTINAL: Denies abdominal pain, nausea, vomiting, diarrhea SKIN: Denies rash or itching. MUSCULOSKELETAL: Denies myalgia. NEUROLOGIC: Reports headache. All systems reviewed & are unremarkable except as noted in HPI and below PMFSH Past Medical History Medical History Ectopic Obesity Ovarian cyst Smoker Surgical History Surgical History H/O cervical spine surgery H/O laparoscopy Family History Family History Father Diabetes mellitus FH: heart attack Mother Acute rheumatoid arthritis Sibling Cerebrovascular accident Social History Social History Smoking packs per day: 1 Smoking cigarettes per day: 20.0 Smoking status: Former smoker Tobacco type: cigarettes Second hand tobacco smoke exposure: Yes Alcohol intake: former Substance use: never Lack of Transportation: No Lack of Food: Never True Current Housing: I Have Housing Concerned About Future Housing: No Difficulty Paying Gas/Electric Bills: No Difficulty Paying for Meds: No Currently Unemployed: No Education: High School Diploma/GED Difficulty w/ Childcare or Family Care: No Gender identity (if verbalized by the patient): Female Spiritual care concerns: No Comments At time of signature, agree with nursing past medical, surgical, social and family history. There is no relevant family history pertinent to the presenting complaint Exam Narrative: GENERAL: Well-appearing, well-nourished, and in no acute distress. HEAD: Normocephalic EYES: PERRLA, conjunctivae clear ENT: Nares clear. Mucous membranes moist. TM pearly espino with sharp light reflex bilaterally; no tragal tenderness. Oropharynx not erythematous without lesions. Tonsils not enlarged and without exudate, no drooling, no hoarseness, no trismus, uvula midline. NECK: Supple. No lymphadenopathy CHEST: Clear to auscultation, breath sounds equal. No wheezing, rhonchi, rales, or stridor. No respiratory distress, speaks in full sentences. HEART: Regular rate and rhythm. No murmur heard. SKIN: Warm, dry, no rash. NEURO: Alert and oriented x3. PSYCH: Normal mood and affect Course Course Emergency Course: Patient is aware of diagnosis, understands and agrees to treatment plan. Anticipatory guidance given. Patient agrees to follow-up as directed and is aware of reasons to seek care at the emergency department. Portions of this record may have been created with voice recognition software Level of Care: Express Care Visit Vital Signs Vital signs: Reviewed. MDM - URI/Sore Throat MDM Narrative Medical decision making narrative: Differential diagnosis considered: Banerjee virus, strep pharyngitis, allergic rhinitis, upper respiratory tract infection, sinusitis, rhinosinusitis, nasopharyngitis. viral pharyngitis, otitis media, otitis externa, pneumonia, bronchitis, viral cough syndrome, viral syndrome, and influenza. Exam findings show no acute concerns or changes; patient is non-toxic appearing and is in no distress. Patient is appropriate for outpatient treatment and follow-up. Lab Data Attestation: I reviewed the patient's lab results. Critical Care Time Critical Care Time Critical Care Time: No Discharge Plan Discharge Clinical Impression: Positive self-administered antigen test for COVID-19 Patient Disposition: Home Condition: Stable Instructions: How to Recover from COVID-19 at Home (ED) Additional Instructions: Your rapid COVID test is positive. COVID is a virus, antibiotics are not effective against viruses. Your body has to kill viruses. ? Stay home when you are sick, except to get medical care. ? Stay home until your symptoms are resolving and you haven't had a fever for 24 hours. ? If you are self isolating at home where others live, use a separate room and bathroom for sick household members (if possible). Clean any shared rooms as needed, to avoid transmitting the virus. ? Wash your hands often with soap and water for at least 20 seconds, especially after blowing your nose, coughing, or sneezing; going to the bathroom; and before eating or preparing food. ? If soap and water are not available, use an alcohol-based hand php software engineer with at least 60% alcohol. ? Have a supply of clean, disposable face masks. Everyone, no matter their COVID diagnosis, should wear face masks while in the home. - Over the counter medications such as Tylenol every 4 hours, ibuprofen every 6 hours (you can alternate these for maximum effect), Mucinex DM for cough, and psuedoephedrine (you must ask the pharmacist for this) can help relieve symptoms while your body fights off the virus. Watch for symptoms and learn when to seek emergency medical attention. If someone is showing any of these signs, seek emergency medical care immediately: ? Trouble breathing ? Persistent chest pain/pressure ? Confusion ? Inability to wake or stay awake ? Bluish lips or face Call 911 or call ahead to your local emergency room: Notify the chainstitch tunnel elastic operator that you are seeking care for someone who has or may have COVID Patient Language: Telugu Prescriptions: No Action Trulicity 1.5 mg/0.5 mL pen injector 1.5 mg subcut spironolactone 25 mg tablet 25 mg PO citalopram 20 mg tablet 20 mg PO mupirocin 2 % ointment 1 applic topical BID Qty: 22 0RF metformin 500 mg tablet 500 mg PO BID cyanocobalamin (vitamin B-12) 1,000 mcg/mL solution 1,000 mcg subcut MONTHLY Rx Instructions: pt takes on the 18th of each month albuterol sulfate 90 mcg/actuation HFA aerosol inhaler 2 puff INHALATION Q2-4H PRN (Reason: Shortness Of Breath) cholecalciferol (vitamin D3) [Vitamin D3] 125 mcg (5,000 unit) Tablet 5,000 unit PO DAILY ascorbate calcium (vitamin C) 1,000 mg PO DAILY cetirizine [Zyrtec] 10 mg Tablet 10 mg PO DAILY Follow-up/Referrals: UNKNOWN,DOCTOR [Primary Care Provider] - Stand Alone Forms: Work/School Release IP Time of Disposition: 08:58
[2025-04-21 08:48] VITALS: BP 132/76; PULSE 87; RESP 20; TEMP 36.7; O2SAT 100
== END 2025-04-21 09:03 | disposition home or self-care (01) ==
PROVIDERS: Emergency Provider Nurse Practitioner
DX: U07.1 COVID-19 (principal); E66.9 Obesity, unspecified; Z68.37 Body mass index [BMI] 37.0-37.9, adult; Z87.891 Personal history of nicotine dependence
CPT/HCPCS: 99211; G0463

== ENCOUNTER 2025-04-29 14:50 | Emergency (ER) | payer OTHER, SELFPAY ==
--- NOTE | ~2025-04-29 | XR_ITS ---
EXAMINATION: XR chest 2V 04/29/2025 15:18 INDICATION: Cough. Shortness of breath COMPARISON: 08/09/2022 FINDINGS: The lungs are clear. The cardiomediastinal silhouette is within normal limits. There are no pleural effusions. There is no pneumothorax suspected. Cervical hardware is noted. IMPRESSION: 1: NO ACUTE CARDIOPULMONARY DISEASE. Reviewed, dictated and finalized at location A.
--- NOTE | 2025-04-29 14:53 | ED_ITS ---
HPI - URI/Sore Throat General Chief Complaint: Upper Respiratory Infection Stated Complaint: Upper Respiratory Time Seen by Provider: 04/29/25 14:52 Source: patient Mode of arrival: ambulatory Limitations: no limitations History of Present Illness HPI Narrative: Naomi is a 39-year-old female patient presenting to the clinic today with complaints of bilateral ear pain, cough, nasal congestion chest congestion, and shortness of breath. Tested positive for COVID 1 week ago and was seen in the [facility] on 04/21/25. States she has been laying in bed on all week, getting up periodically. Has not had fever for 2-3 days. She is a smoker. Is coughing up green/brown phlegm. Related Data Home Medications ?Medication ?Instructions ?Recorded ?Confirmed ?Last Taken ?Type cyanocobalamin (vitamin B-12) 1,000 mcg subcut MONTHLY 08/02/20 10/13/22 Unknown History 1,000 mcg/mL injection solution ascorbate calcium (vitamin C) 1,000 mg PO DAILY 10/13/22 Unknown History cholecalciferol (vitamin D3) 125 5,000 unit PO DAILY 1 10/03/19 10/13/22 Unknown History mcg (5,000 unit) tablet (Vitamin D3) citalopram 20 mg tablet 20 mg PO 10/13/22 10/13/22 U nknown History spironolactone 25 mg tablet 25 mg PO 10/13/22 10/13/22 Unknown History Allergies Allergy/AdvReac Type Severity Reaction Status Date / Time No Known Allergies Allergy Verified 04/29/25 15:00 Review of Systems Review of Systems: Pertinent positives per HPI. Patient denies any fever, chills, rash, headache, visual changes, dizziness, chest pain, palpitations, nausea, vomiting, diarrhea, constipation, abdominal pain, or any urinary issues. [facility] Past Medical History Medical History Ectopic Ovarian cyst Smoker Obesity Surgical History Surgical History H/O laparoscopy H/O cervical spine surgery Family History Family History Father Diabetes mellitus FH: heart attack Mother Acute rheumatoid arthritis Sibling Cerebrovascular accident Social History Social History Smoking packs per day: 1 Smoking cigarettes per day: 20.0 Smoking status: Former smoker Tobacco type: cigarettes Second hand tobacco smoke exposure: Yes Alcohol intake: former Substance use: never Lack of Transportation: No Lack of Food: Never True Current Housing: I Have Housing Concerned About Future Housing: No Difficulty Paying Gas/Electric Bills: No Difficulty Paying for Meds: No Currently Unemployed: No Education: High School Diploma/GED Difficulty w/ Childcare or Family Care: No Gender identity (if verbalized by the patient): Female Spiritual care concerns: No Comments At the time of my signature, I reviewed and agree with the nursing past medical, surgical, social, and family history. There is no relevant family history pertinent to the patient complaint. Exam Narrative: General: Well-developed, well nourished, in no apparent distress Head: Normocephalic, atraumatic Eyes: Pupils equally round and reactive to light bilaterally, EOM intact, sclera and conjunctive clear, no discharge, lids normal Ears: TMs intact and congested, ear canals clear, no drainage, grossly hearing normal. Nose: Nares patent, clear nasal discharge, no inflammation, no sinus tenderness. Mouth: Oral pharynx red without lesions or masses, good dentition, MMM. P ostnasal drip Neck: Supple, trachea midline, no enlargement of anterior or posterior cervical nodes, no thyroid masses or goiter palpable. Cardio: Regular rate and rhythm, s1 and s2 normal, no murmur appreciated. Resp: Clear to auscultation bilaterally, no rhonchi, rales, wheezing or rubs Course Course Emergency Course: Portions of this record may have been created with voice recognition software. Level of Care: Express Care Visit Vital Signs Vital signs: Vital Signs Temperature 36.9 C 04/29/25 14:56 Pulse Rate 112 H 04/29/25 14:56 Respiratory Rate 14 04/29/25 14:56 Blood Pressure 139/87 04/29/25 14:56 Pulse Oximetry 100 04/29/25 14:56 Oxygen Delivery Room Air 04/29/25 14:56 Temperature 36.9 C 04/29/25 14:56 Pulse Rate 112 H 04/29/25 14:56 Respiratory Rate 14 04/29/25 14:56 Blood Pressure 139/87 04/29/25 14:56 Pulse Oximetry 100 04/29/25 14:56 Oxygen Delivery Room Air 04/29/25 14:56 Vital signs reviewed MDM - URI/Sore Throat MDM Narrative Medical decision making narrative: At the time of visit patient is resting comfortably on the exam table. Patient appears to be nontoxic. Complaints of bilateral ear pain, cough, nasal congestion chest congestion, and shortness of breath. Tested positive for COVID 1 week ago and was seen in the [facility] on 04/21/25. States she has been laying in bed on all week, getting up periodically. Has not had fever for 2-3 days. She is a smoker. Is coughing up green/brown phlegm. Will order chest x- ray. Diagnostics: Chest x-ray negative for any acute cardiopulmonary process. Plan: I suspect patient has COVID. Prescription for prednisone and albuterol inhaler was sent to the pharmacy Supportive measures were discussed with the patient and they voiced understanding discharge instructions and agrees to treat ment plan. Return precautions reviewed Differential Diagnosis Differential diagnosis: Likely upper respiratory infection, otitis media, si nusitis, viral infection, bronchitis, influenza, pharyngitis and other Imaging Data Radiologist's impression: ITS Impressions Chest X-Ray 04/29/25 15:20 IMPRESSION: 1: NO ACUTE CARDIOPULMONARY DISEASE. Discharge Plan Discharge Clinical Impression: COVID Patient Disposition: Home Condition: Stable Instructions: Antibiotic Form, How to Recover from COVID-19 at Home (ED) Additional Instructions: Chest x-rays negative for any sign of pneumonia. Take prescription medications only as prescribed-albuterol inhaler and prednisone Increase fluids and stay well hydrated May take Tylenol or motrin as directed on bottle for pain/fever May use Flonase 1 spray in each nare daily May take OTC antihistamines such as Zyrtec or Claritin daily as directed on bottle May apply Vicks vapor rub to chest to open sinuses Sinus rinses for congestion Cepacol spray, cough drops, throat lozenges, warm tea with honey/lemon, gargle salt water to soothe throat BRAT diet for diarrhea Clear liquids x 24 hours then advance as tolerated for nausea/vomiting Go to the ED if you develop a worsening in your condition- high fever not controlled by Tylenol or Motrin, dehydration, weakness, lethargy, shortness of breath, or chest pain. Follow up with your PCP in 3-5 days if symptoms persist. Patient Language: Mongolian Prescriptions: New albuterol sulfate 90 mcg/actuation HFA aerosol inhaler 2 puff inhalation Q4-6H PRN (Reason: shortness of breath or wheezing) 30 Days Qty: 8.5 0RF prednisone 20 mg tablet 40 mg PO DAILY 5 Days Qty: 10 0RF No Action spironolactone 25 mg tablet 25 mg PO citalopram 20 mg tablet 20 mg PO cyanocobalamin (vitamin B-12) 1,000 mcg/mL solution 1,000 mcg subcut MONTHLY Rx Instructions: pt takes on the 18th of each month cholecalciferol (vitamin D3) [Vitamin D3] 125 mcg (5,000 unit) Tablet 5,000 unit PO DAILY ascorbate calcium (vitamin C) 1,000 mg PO DAILY Follow-up/Referrals: Ana Lilia [facility] [Primary Care Provider, Nursing] Stand Alone Forms: Work/School Release IP Time of Disposition: 15:23 Quality NIHSS Nursing Documentation ED NIHSS nursing documentation: reviewed/agree
[2025-04-29 14:56] VITALS: BP 139/87; PULSE 112; RESP 14; TEMP 36.9; O2SAT 100
--- OUTSIDE RECORDS SUMMARY | 2025-04-29 15:19 | XMS_ITS | Encounter Summary ---
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
--- OUTSIDE RECORDS SUMMARY | 2025-04-29 15:19 | XMS_ITS | Clinical Summary ---
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
== END 2025-04-29 15:30 | disposition home or self-care (01) ==
PROVIDERS: Emergency Provider Nurse Practitioner Family
DX: U07.1 COVID-19 (principal); F17.210 Nicotine dependence, cigarettes, uncomplicated; E66.9 Obesity, unspecified; Z68.37 Body mass index [BMI] 37.0-37.9, adult
CPT/HCPCS: 71046; 99213; G0463

== ENCOUNTER 2025-08-13 08:36 | Emergency (ER) | payer SELFPAY ==
--- NOTE | 2025-08-13 08:43 | ED.URI ---
HPI - URI/Sore Throat General Chief Complaint: Upper Respiratory Infection Stated Complaint: ears/throat/congestion Time Seen by Provider: 08/13/25 08:49 Source: patient, RN notes reviewed and old records reviewed Mode of arrival: ambulatory Limitations: no limitations History of Present Illness HPI Narrative: 39 year old female who presents to [facility] care with complaints of sore throat, cough and congestion, runny nose, glands swollen for the past day and has had left ear pain for 2 weeks. Patient reports that she has not had a fever but she has felt feverish and had chills.She has been taking cold and sinus medication, DayQuil and NyQuil, and has taken some Ibuprofen. MD elicited complaint: cough, sore throat, rhinorrhea, nasal congestion and other (ear pain left ear) Onset (ago): day(s) (1day with ear pain 2 weeks) Pain scale (0-10): 4 Able to tolerate fluids by mouth: Yes Treatments prior to arrival: ibuprofen, cold medicine and other (DayQuil and NyQuil) Related Data Home Medications ?Medication ?Instructions ?Recorded ?Confirmed ?Last Taken ?Type cyanocobalamin (vitamin B-12) 1,000 mcg subcut MONTHLY 08/02/20 10/13/22 Unknown History 1,000 mcg/mL injection solution ascorbate calcium (vitamin C) 1,000 mg PO DAILY 08/03/20 10/13/22 Unknown History cholecalciferol (vitamin D3) 125 5,000 unit PO DAILY 08/03/20 10/13/22 Unknown History mcg (5,000 unit) tablet (Vitamin D3) citalopram 20 mg tablet 20 mg PO 10/13/22 10/13/22 Unknown History spironolactone 25 mg tablet 25 mg PO 10/13/22 10/13/22 Unknown History Allergies Allergy/AdvReac Type Severity Reaction Status Date / Time No Known Allergies Allergy Verified 08/13/25 08:39 Review of Systems Review of Systems: CONSTITUTIONAL: Reports malaise,positive chills, no sweats, or known fever. EYES: Denies visual changes, redness, or discharge. ENT: Reports rhinorrhea, congestion, sinus pain, Left otalgia and +sore throat. CARDIOVASCULAR: Denies chest pain, palpitations, or edema. RESPIRATORY: Reports cough.? Denies dyspnea. GASTROINTESTINAL: Denies abdominal pain, nausea, vomiting, diarrhea SKIN: Denies rash or itching. MUSCULOSKELETAL: Denies myalgia. NEUROLOGIC: Denies headache. All systems reviewed & are unremarkable except as noted in HPI and below PMFSH Past Medical History Medical History Ectopic Ovarian cyst Smoker Obesity Surgical History Surgical History H/O laparoscopy H/O cervical spine surgery Family History Family History Father Diabetes mellitus FH: heart attack Mother Acute rheumatoid arthritis Sibling Cerebrovascular accident Social History Social History (Updated 08/13/25 @ 09:43 by Molly Carolina APRN) Smoking packs per day: 0.5 Smoking cigarettes per day: 10.0 Smoking status: Current every day smoker Tobacco type: cigarettes Second hand tobacco smoke exposure: Yes Additional smoking assessment comments: states quit smoking for 2 years then started again Alcohol intake: former Substance use: never Lack of Transportation: No Lack of Food: Never True Current Housing: I Have Housing Concerned About Future Housing: No Difficulty Paying Gas/Electric Bills: No Difficulty Paying for Meds: No Currently Unemployed: No Education: High School Diploma/GED Difficulty w/ Childcare or Family Care: No Gender identity (if verbalized by the patient): Female Spiritual care concerns: No Comments At time of signature, agree with nursing past medical, surgical, social and family history. There is no relevant family history pertinent to the presenting complaint Exam Narrative: GENERAL: Well-appearing, well-nourished, and in no acute distress. HEAD: Normocephalic EYES: PERRLA, conjunctivae clear ENT: Nares clear, turbinates edematous and erythematous, clear discharge, sinus pressure. Mucous membranes moist. Left TM red, Right TM pearly espino with dull light reflex bilaterally; no tragal tenderness. Oropharynx erythematous without lesions. Tonsils mildly red not enlarged and without exudate, no drooling, no hoarseness, no trismus, uvula midline. NECK: Supple. lymphadenopathy with tenderness CHEST: Clear to auscultation, breath sounds equal. No wheezing, rhonchi, rales, or stridor. No respiratory distress, speaks in full sentences. dry cough noted SAO2 99% on room air HEART: Regular rate and rhythm. No murmur heard. SKIN: Warm, dry, no rash. NEURO: Alert and oriented x3. PSYCH: Normal mood and affect Course Course Level of Care: Express Care Visit Vital Signs Vital signs: Vital Signs Temperature 36.6 C 08/13/25 08:48 Pulse Rate 98 08/13/25 08:48 Respiratory Rate 16 08/13/25 08:48 Blood Pressure 142/83 H 08/13/25 08:48 Pulse Oximetry 99 08/13/25 08:48 Oxygen Delivery Room Air 08/13/25 08:48 Temperature 36.6 C 08/13/25 08:48 Pulse Rate 98 08/13/25 08:48 Respiratory Rate 16 08/13/25 08:48 Blood Pressure 142/83 H 08/13/25 08:48 Pulse Oximetry 99 08/13/25 08:48 Oxygen Delivery Room Air 08/13/25 08:48 reviewed [facility] Differential Diagnosis Differential Diagnosis: URI, left otitis media, sinusitis, viral infection,COVID, strep pharyngitis, pharyngitis Lab Data [facility] Lab Attestation statement: I personally reviewed the patient's lab results. Lab results narrative: strep screen negative, culture sent, COVID antigen negative, Influenza A&B negative Labs: Lab Results 08/13/25 Range/Units 09:03 POC Influenza A Ag Negative (Negative) POC Influenza B Ag Negative (Negative) POC SARS CoV-2 Ag Negative (Negative) POC Grp A Strep Screen Negative (Negative) reviewed Critical Care Time Critical Care Time Critical Care Time: No Discharge Plan Discharge Clinical Impression: Acute left otitis media URI (upper respiratory infection) Qualifiers: URI type: unspecified URI Qualified Code(s): J06.9 - Acute upper respiratory infection, unspecified Patient Disposition: Home Condition: Stable Instructions: Antibiotic Form, Ear Infection (GEN) Additional Instructions: Increase fluids especially juices and water [id number] cough and cold medicine of your choice for your symptoms Tylenol or ibuprofen for any fever pain per package instructions heat to the face 20-30 minutes 4-6 times a day for pain Salt water gargles, throat lozenges or throat sprays as desired Antibiotic as directed--finished the medication recommend taking a probiotic or eating Activia yogurt while on this medication, take the antibiotic with food If your symptoms persist, change or worsen significantly before you can contact your personal physician then please, without delay, go to the emergency department for further evaluation. Follow-up with PCP in 7-10 days or sooner if needed Follow up with PCP soon in regards to your blood pressure which is elevated above threshold for referral. Blood pressure above 120/80 may indicate pre-hypertension. 142/83 Patient Language: Malaysian Prescriptions: New amoxicillin-pot clavulanate 875-125 mg tablet 1 tablet PO Q12H Qty: 20 0RF Rx Instructions: take with food recommend eating Activia yogurt or taking a probiotic while on this medication No Action albuterol sulfate 90 mcg/actuation HFA aerosol inhaler 2 puff inhalation Q4-6H PRN (Reason: shortness of breath or wheezing) 30 Days Qty: 8.5 0RF prednisone 20 mg tablet 40 mg PO DAILY 5 Days Qty: 10 0RF spironolactone 25 mg tablet 25 mg PO citalopram 20 mg tablet 20 mg PO cyanocobalamin (vitamin B-12) 1,000 mcg/mL solution 1,000 mcg subcut MONTHLY Rx Instructions: pt takes on the 18th of each month cholecalciferol (vitamin D3) [Vitamin D3] 125 mcg (5,000 unit) Tablet 5,000 unit PO DAILY ascorbate calcium (vitamin C) 1,000 mg PO DAILY Follow-up/Referrals: PHYSICIAN NOT ON STAFF,NONSTAFF [Primary Care Provider] Stand Alone Forms: Work/School Release IP Time of Disposition: 09:09 Quality Tae Coma Scale Eyes: Open Verbal: Oriented and Alert Motor: Follows Commands Tae Coma Total Score: 15
[2025-08-13 08:48] VITALS: BP 142/83; PULSE 98; RESP 16; TEMP 36.6; O2SAT 99
[2025-08-13 09:05] LABS: EDCOVIDSCREEN Negative (Negative); EDINFLUASCREEN Negative (Negative); EDINFLUBSCREEN Negative (Negative); EDSTREPNEGPOS1 Negative (Negative)
== END 2025-08-13 09:25 | disposition home or self-care (01) ==
PROVIDERS: Emergency Provider Registered Nurse
DX: H66.92 Otitis media, unspecified, left ear (principal); J06.9 Acute upper respiratory infection, unspecified; Z20.822 Contact with and (suspected) exposure to COVID-19; E66.9 Obesity, unspecified; Z68.33 Body mass index [BMI] 33.0-33.9, adult; Z87.891 Personal history of nicotine dependence
CPT/HCPCS: 87081; 87426; 87804; 87880; 99213; G0463